=== PATIENT | female | born 2000 | race Hispanic/Latino ===

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

== ENCOUNTER 2022-06-04 00:12 | Emergency (ER) | payer MEDICAID ==
[~2022-06-04] VITALS: Ht 157.5 cm; Wt 69.9 kg
[2022-06-04] MEDS ORDERED: IBUP-1493 PO (01:41)
[2022-06-04 01:59] VITALS: BP 105/62
== END 2022-06-04 02:00 | disposition home or self-care (01) ==
LOC: EDH 00:12
DX: S09.90XA Unspecified injury of head, initial encounter (principal); X58.XXXA Exposure to other specified factors, initial encounter; Y93.89 Activity, other specified; Y92.89 Other specified places as the place of occurrence of the external cause; Y99.8 Other external cause status
CPT/HCPCS: 70450; 72125; 81025